=== PATIENT | female | born 1985 | race Caucasian/White ===

== ENCOUNTER → 2018-11-16 | Outpatient (CLI) | payer BC | END | disposition home or self-care (01) | LOC: US 16:00 | DX: E03.9 Hypothyroidism, unspecified (principal) ==

== ENCOUNTER → 2021-08-02 | Outpatient (CLI) | payer OTHER ==
[2021-08-02 17:29] LABS: BASO # 0.1 10*3/uL (0.0-0.1); BASO % 0.5 % (0.0-1.0); EOS # 0.3 10*3/uL (0.0-0.4); EOS % 2.6 % (1.0-4.0); HEMATOCRIT 41.4 % (37.0-47.0); LYMPH # 2.2 10*3/uL (1.3-4.4); LYMPH % 22.4 % (27.0-41.0); MEAN CELL VOLUME 88.1 fl (81.0-99.0); MEAN CORPUSCULAR HGB 28.9 pg (27.0-31.0); MEAN CORPUSCULAR HGB CONC 32.9 g/dl (33.0-37.0); MEAN PLATELET VOLUME 11.7 fl (9.6-12.3); MONO # 0.6 10*3/uL (0.1-1.0); MONO % 5.8 % (3.0-9.0); NEUT # 6.8 10*3/uL (2.3-7.9); NEUT % 68.3 % (47.0-73.0); PLATELET COUNT AUTOMATED 266 10*3/uL (130-400); RED CELL DISTRI WIDTH 13.2 % (0-14.5); WHITE BLOOD COUNT 9.9 10*3/uL (4.8-10.8)
[2021-08-02 17:53] LABS: ALBUMIN 3.7 gm/dl (3.1-4.5); BUN 15 mg/dl (7-24); CHLORIDE 105 mmol/L (98-107); CHOLESTEROL 170 mg/dL (<200); LDL CHOLESTEROL 74 mg/dL (9-159); POTASSIUM 3.8 mmol/L (3.5-5.1); SGOT/AST 13 IU/L (3-35); SGPT/ALT 24 U/L (12-78); SODIUM 140 mmol/L (136-145); TRIGLYCERIDES 95 mg/dl (<150)
[2021-08-02 18:03] LABS: ALKALINE PHOSPHATASE 94 U/L (45-117); FREE T4 0.91 ng/dl (0.76-1.46); TOTAL PROTEIN 8.2 gm/dL (6.4-8.2)
[2021-08-02 18:06] LABS: BETA-HCG, QUANT < 1.0 mIU/mL (1-3)
[2021-08-03 08:08] LABS: FOLLICLE STIMULATING HORMONE 6.3 mIU/mL (.); PROLACTIN 7.5 ng/mL (4.8-23.3)
== END | disposition home or self-care (01) ==
LOC: LAB 16:42
PROVIDERS: ATTEND Advanced Practice Midwife
DX: E03.9 Hypothyroidism, unspecified (principal); N92.6 Irregular menstruation, unspecified; R63.5 Abnormal weight gain; Z86.32 Personal history of gestational diabetes

== ENCOUNTER → 2021-10-03 | Outpatient (CLI) | payer OTHER ==
[2021-10-03 17:49] LABS: FREE T4 0.99 ng/dl (0.76-1.46)
[2021-10-03 17:56] LABS: THYROID STIM HORMONE (HS) 3.01 uIU/ml (0.358-4.75)
== END | disposition home or self-care (01) ==
LOC: LAB 16:47
PROVIDERS: ATTEND Advanced Practice Midwife
DX: E03.9 Hypothyroidism, unspecified (principal); E55.9 Vitamin D deficiency, unspecified

== ENCOUNTER → 2022-01-29 | Outpatient (CLI) | payer OTHER ==
[2022-01-29 15:42] LABS: FREE T4 0.99 ng/dl (0.76-1.46)
[2022-01-29 15:48] LABS: THYROID STIM HORMONE (HS) 1.68 uIU/ml (0.358-4.75)
== END | disposition home or self-care (01) ==
LOC: LAB 14:58
PROVIDERS: ATTEND Advanced Practice Midwife
DX: N92.1 Excessive and frequent menstruation with irregular cycle (principal); E03.9 Hypothyroidism, unspecified; E66.01 Morbid (severe) obesity due to excess calories

== ENCOUNTER → 2022-09-16 | Outpatient (CLI) | payer OTHER ==
[2022-09-16 12:47] LABS: BASO # 0.1 10*3/uL (0.0-0.1); BASO % 0.8 % (0.0-1.0); EOS # 0.2 10*3/uL (0.0-0.4); EOS % 3.2 % (1.0-4.0); LYMPH % 26.4 % (27.0-41.0); MEAN CELL VOLUME 88.9 fl (81.0-99.0); MEAN CORPUSCULAR HGB 29.6 pg (27.0-31.0); MEAN CORPUSCULAR HGB CONC 33.3 g/dl (33.0-37.0); MEAN PLATELET VOLUME 10.8 fl (9.6-12.3); MONO # 0.4 10*3/uL (0.1-1.0); MONO % 5.5 % (3.0-9.0); NEUT # 4.8 10*3/uL (2.3-7.9); NEUT % 63.6 % (47.0-73.0); PLATELET COUNT AUTOMATED 244 10*3/uL (130-400); WHITE BLOOD COUNT 7.5 10*3/uL (4.8-10.8)
[2022-09-16 13:04] LABS: ALKALINE PHOSPHATASE 83 U/L (46-116); BUN 14 mg/dl (9-23); CHLORIDE 104 mmol/L (98-107); CREATININE 0.81 mg/dL (0.55-1.02); POTASSIUM 3.9 mmol/L (3.4-5.1); SGPT/ALT 13 U/L (10-49); SODIUM 137 mmol/L (136-145); TRIGLYCERIDES 50 mg/dl (<150)
[2022-09-16 13:05] LABS: CHOLESTEROL 154 mg/dL (<200); LDL CHOLESTEROL 82 mg/dL (9-159); TOTAL PROTEIN 7.3 gm/dL (6.0-8.0)
[2022-09-16 13:06] LABS: FREE T4 1.22 ng/dl (0.89-1.76)
[2022-09-16 13:33] LABS: VITAMIN D, 25-HYDROXY 28.4 ng/mL (30-100)
[2022-09-16 14:04] LABS: THYROID STIM HORMONE (HS) 1.395 uIU/ml (0.550-4.780)
== END | disposition home or self-care (01) ==
LOC: LAB 12:23
PROVIDERS: ATTEND Advanced Practice Midwife
DX: Z01.419 Encounter for gynecological examination (general) (routine) without abnormal findings (principal); E66.01 Morbid (severe) obesity due to excess calories; R53.83 Other fatigue; R79.82 Elevated C-reactive protein (CRP); E03.9 Hypothyroidism, unspecified; Z68.32 Body mass index [BMI] 32.0-32.9, adult

== ENCOUNTER → 2024-07-06 | Outpatient (CLI) | payer OTHER ==
[2024-07-06 14:28] LABS: THYROXINE (T4) TOTAL 7.1 ug/dl (4.5-10.9)
== END | disposition home or self-care (01) ==
LOC: LAB 13:02
PROVIDERS: ATTEND Family Medicine
DX: E03.9 Hypothyroidism, unspecified (principal)